=== PATIENT | male | born 1965 | race Caucasian/White ===

== ENCOUNTER 2025-08-08 09:48 | Emergency (ER) | payer MEDICARE, SELFPAY ==
[2025-08-08 09:52] VITALS: BP 173/106
--- NOTE | 2025-08-08 11:02 | ED.GENMED ---
History of Present Illness
General
Chief Complaint: Swelling
Source: patient
Exam Limitations: none
Time Seen by Provider: 08/08/25 10:23
Nursing documentation reviewed up to this point in time: agreed with
History of Present Illness
History of Present Illness:
Patient is a 59-year-old male who presents to the ER for evaluation. Patient reports on Tuesday 4 days ago he started with bilateral lower extremity swelling. He reports his swelling was so bad he could see his fingerprints in his legs. He
typically does not have swelling in his legs. He was not sure if this was from eating Thanksgiving dinner and eating fast food. He reports he is been living in a hotel room for the past 2 weeks because 2 weeks ago he had a chemical sprayed in his
house from the pesticide and has not been able to stay there since. He also reports his blood pressure has been elevated. He was seen urgent care yesterday and his blood pressure was elevated at that time. He comes in today because he is
concerned about his elevated blood pressure and his lower extremity swelling though presently he reports swelling has resolved he denied. He denies any chest pain or shortness of breath. He does report however he is on Pepcid because he recently
has had issues with complaining of reflux in his chest /throat ever since he was exposed to the chemicals in his house.
Phy Exam
General Physical Exam
General Presentation: no apparent distress
General age: appears stated age
General Skin: warm and dry
General Habitus: normal
General Mental: alert
General Hydration: appears well hydrated
Cardiovascular Exam
Cardiovascular Exam: regular rate/rhythm, no murmur and normal peripheral pulses
Pulmonary Exam
Pulmonary Exam: lungs clear and no respiratory distress
Neurological Exam
Neurological Exam: alert and oriented x3
Musculoskeletal Exam
Musculoskeletal Exam: other ( no lower extremity swelling b/l )
Skin Exam
Skin Exam: normal color and warm/dry
Psychiatric Exam
Psychiatric Exam: normal mood/affect
Scores
Heart Failure Risk
Heart Failure Risk Score: Not Applicable
Sepsis
Sepsis Screening
Sepsis Assessment: Sepsis Ruled Out
Sepsis Screen
Sepsis Screen: Sepsis Ruled Out
Date: 08/08/25
Time: 15:59
Course
Orders/Labs/Results
Orders:
Orders
08/08/25 11:02
Electrocardiogram (*1) Stat
Reason for Study: Other
Other Reason for Exam: chest pain
Cardiac Monitoring- Treatment ONCE
EKG- Treatment ONCE
IV Insert/Care/Rem.- Treatment PRN
Venous Doppler Lwr Ext Bilat [US Periph Venous LOWER Ext Francisco] Urgent
Comment:
Reason For Exam: l/e swelling
08/08/25 11:07
BNP [NT-proBNP] Urgent
Complete Blood Count/With Diff Urgent
Comprehensive Metabolic Panel Urgent
Troponin I Urgent
08/08/25 12:53
EKG- Treatment ONCE
08/08/25 14:00
Electrocardiogram (*1) Urgent
Reason for Study: Chest Pain
08/08/25 14:05
Troponin I Urgent
Abnormal Lab Results
08/08/25
11:07
RBC 4.50 L 10^6/uL
(4.70-6.10)
Hct 38.9 L %
(39.0-52.0)
MPV 10.6 H fL
(7.4-10.4)
Immature Gran % 0.6 H %
(0-0.5)
Glucose 104 H mg/dl
(70-99)
08/08/25 11:07
08/08/25 11:07
Vital Signs
Initial and Last Documented VS:
Initial Vital Signs
Temp Pulse Resp BP Pulse Ox
98.2 F 87 16 173/106 98
08/08/25 09:52 08/08/25 09:52 08/08/25 09:52 08/08/25 09:52 08/08/25 09:52
Last Documented Vital Signs
Temp Pulse Resp BP Pulse Ox
97.7 F 64 18 158/105 99
08/08/25 14:38 08/08/25 14:38 08/08/25 14:38 08/08/25 14:38 08/08/25 14:38
MDM/Problems Addressed
Differential Diagnosis Includes:
Not limited to dependent edema less likely DVT reflux less likely ACS, situational stress/ anxiety, elevated blood pressure
MDM/Problems Addressed:
As document patient is a 59-year-old male who presented with several complaints. Patient has been under a lot of stress recently as he recently had a chemical sprayed in his house accidentally which was a pesticide chemical. Since then he reports
his blood pressure has been elevated he is at lower extremity swelling he did complain of indigestion but reports a lot of this he was associating with eating because he has been eating in a hotel room after the has not eaten
healthy. He presents awake alert no acute distress he did have a picture with swelling and he had pitting edema however that has since resolved. His blood pressure is elevated here however he is in no acute distress with no headache. 2 troponins
were checked because of indigestion #1: 0.013- and #2 : 0.012 with no EKG changes. ReSound was done of his extremities which were negative for DVT. His lungs are clear he is in no acute distress his BNP is low. I placed
Patient has no cardiac history at this time we will hold off on treating blood pressure will have patient follow-up however with his family doctor for reevaluation of his blood pressure.
*Radiology
Radiology exam reviewed: radiology read reviewed
*Pulse Oximetry
SaO2: 98
Oxygen Mode of Delivery: Room air
Patient hypoxic: no
*EKG
Interpretation: normal
Heart Rate: 60
Rate: normal
Rhythm: sinus
Ischemia: no ischemia
*Critical Care Note
Total Time (30-74mins, 75-104mins- exclusive of procedures): Not Applicable
ED Attending Note
-
Portions of this chart may have been created with voice recognition software.� Occasional wrong word or��sound alike� substitutions may have occurred due to the inherent limitations of voice recognition software.
Discharge Plan
Departure
Patient Disposition: Home (Routine Discharge)
Date of Disposition: 08/08/25
Time of Disposition: 14:47
Patient with high blood pressure during this ER visit?: Yes
Condition: Fair
Covid-19: Not Applicable
Discharge Problem:
Edema, elevated blood pressure
Instructions: Dependent Edema (DC), BLOOD PRESSURE
Referrals:
NONE,* [Family Provider, Internal Medicine]
Activity Restrictions/Additional Instructions:
Follow-up with your family doctor in the next several days for reevaluation of your symptoms. Avoid salt.
Your ultrasound was negative for blood clot. Your labs were unremarkable.
Return if any worsening of symptoms.
Interventions
Interventions:
*Risk Screen - Suicide Last Done: 08/08/25 09:52
*Neglect/Abuse Screening Last Done: 08/08/25 09:52
*ED COVID-19 Vaccine History Last Done: 08/08/25 11:14
*ED Influenza Vaccine History Last Done: 08/08/25 11:14
[facility] Risk Assessment Tool Last Done: 08/08/25 11:08
*Nursing Disposition Last Done: 08/08/25 14:56
ED- Cardiac Assessment Last Done: 08/08/25 11:08
ED- Pulmonary Assessment Last Done: 08/08/25 11:08
Discharge Date and Time
Discharge Date/Time: 08/08/25 14:56
Print Language: CAMEROONIAN
[2025-08-08 11:08] VITALS: BMI 32.6
[2025-08-08 11:13] LABS: Hematocrit 38.9 % (39.0-52.0); Hemoglobin 13.7 g/dL (13.0-18.0); Mean Corp Hgb Conc. 35.2 g/dL (33.0-37.0); Mean Corpuscular Volume 86.4 fL (80.0-94.0); Nucleated Red Blood Cells % 0 % (-); Platelet Count 206 10^3/uL (130-400); Red Cell Dist. Width 11.8 % (11.5-14.5)
[2025-08-08 11:32] LABS: ALT (SGPT) 26 U/L (0-50); AST (SGOT) 26 U/L (17-59); Albumin 4.4 g/dl (3.5-5.0); Alkaline Phosphatase 65 U/L (38-126); Blood Urea Nitrogen 17 mg/dl (9-20); Calcium 9.1 mg/dl (8.4-10.2); Carbon Dioxide 27 mmol/L (22-30); Chloride 105 mmol/L (98-107); Estimated Creatinine Clearance > 125 ml/min; Glucose 104 mg/dl (70-99); Potassium 4.3 mmol/L (3.5-5.1); Sodium 138 mmol/L (135-145); Total Protein 7.2 g/dl (6.3-8.2); eGFR > 60.00
[2025-08-08 11:37] LABS: Troponin I 0.013 ng/ml
[2025-08-08 14:37] LABS: Troponin I 0.012 ng/ml
[2025-08-08 14:38] VITALS: BP 158/105
== END 2025-08-08 14:56 | disposition home or self-care (01) ==
LOC: EMR 09:48
PROVIDERS: Nurse Practitioner; EMERGENCY PHYSICIAN Student in an Organized Health Care Education/Training Program
DX: R60.0 Localized edema (principal); R03.0 Elevated blood-pressure reading, without diagnosis of hypertension
CPT/HCPCS: 99284; 80053; 83880; 84484; 85025; 93005; 93970